=== PATIENT | male | born 1980 | race Two or more races ===

== ENCOUNTER 2024-10-20 09:42 | Outpatient (REF) | payer MEDICAID, SELFPAY ==
--- OUTSIDE RECORDS SUMMARY | 2024-10-19 11:15 | XMS_ITS | Encounter Summary ---
Author Organization [employer] Address [address] [facility] [address] [place] [address] Care Team Providers Care Production Machine Operator Name Role Phone Hiral Salamanca MD Primary Care Provider [phone] Radha Anthony RN Unavailable [phone] Michael Lemus Unavailable Reason for Referral * Consultation (Urgent) - Pending Review Specialty Diagnoses / Procedures Referred By Lewis card Referred To Contact Orthopaedic Surgery Diagnoses Acute right hip pain Hiral Salamanca MD [address] [place] [address] Phone: tel: fax: Referral ID Status Reason Start Date Expiration Date Visits Requested Visits Authorized [id number] Pending Review Specialty Services Required 10/19/2024 10/19/2025 1 1 Reason for Visit * Reason Comments Knee Pain lelia Encounter Details Date Type Department Care Team (Late st Contact Info) Description 10/19/2024 11:15 AM EDT Office Visit [facility] [address] [place] [address] Hiral Salamanca MD [address] [place] [address] Acute right hip pain (Primary Dx); Elevated BP without diagnosis of hypertension Social History Tobacco Use Types Packs/Day Years Used Date Smoking Tobacco: Every Day Cigarettes Housing Stability Answer Date Recorded What is your housing situation today? I have shantell dukes 10/19/[address] you li ve. Do you have problems with any of the following? None of the above 10/19/2024 Food Insecurity Answer Date Recorded Within the past 12 months, y ou worried that your food would run out before you got money to buy more: Never True 10/19/2024 Within the past 12 months,th e food you bought just didn't last and you didn't have enough money to get more: Never True Transportation Answer Date Recorded In the past 12 months, has l ack of transportation kept you from medical appts, meetings, work or from getting things needed for daily living? No 10/15/2024 Utilities Answer Date Recorded In the past 12 months, has t he electric, gas, oil or water company threatened to shut off services in your home? No 10/15/2024 Internet Access Answer Date Recorded Internet Access Q1 No 10/19/2024 Internet Access Q2 I do not want or need it 09/22 Sex and Gender Information Value Date Recorded Sex Assigned at Male 02/19/2022 10:23 AM EDT Legal Sex Male 10:23 AM EDT Gender Identity Male 02/19/2022 10:23 AM EDT Sexual Orientation Straight 02/19/2022 10 :23 AM EDT documented as of this encounter Last Filed Vital Signs Vital Sign Reading Time Taken Comments Blood Pressure 138/94 10/19/2024 11:14 AM EDT Pulse 94 10/19/2024 11:14 AM EDT Temperature 36.2 C (97.1 F) 10/19/2024 11:14 AM EDT Respiratory Rate 18 10/19/2024 11:14 AM EDT Oxygen Saturation - - Inhaled Oxygen Concentration - - Weight 77.1 kg (170 lb) 10/19/2024 11:14 AM EDT Height 176.5 cm (5' 9.5 ) 10/19/2024 11:14 AM ED T Body Mass Index 24.74 10/19/2024 11:14 AM EDT documented in this encounter Progress Notes * Hiral Salamanca MD - 10/19/2024 11:15 AM EDT Subjective Patient ID: Mo Amado is a 44 y.o. male who presents for hip pain Hip Pain There was no injury mechanism. The pain is present in the right hip. The quality of the pain is described as aching. The pain is at a severity of 7/10. The pain is moderate. The pain has been Constant since onset. Associated symptoms include an inability to bear weight. The symptoms are aggravated by movement and weight bearing. He has tried NSAIDs for the symptoms. The treatment provided mild rel ief. Review of Systems Constitutional: Negative. Respiratory: Negative. Cardiovascular: Negative. Gastrointestinal: Negative. Genitourinary: Negative. Objective Physical Exam Constitutional: Appearance: Normal appearance. Cardiovascular: Rate and Rhythm: Normal rate and regular rhythm. Pulmonary: Effort: Pulmonary effort is normal. Breath sounds: Normal breath sounds. Neurological: General: No focal deficit present. Mental Status: He is alert. Psychiatric: Mood and Affect: Mood normal. Behavior: Behavior normal. Assessment/Plan Diagnoses and all orders for this visit: Acute right hip pain Comments: Xray ordered today Advised Ibuprofen ,flexeril and Ice Orders: - Referral to Orthopaedic Surgery; Future - XR Hip 2 or 3 Views Right; Future Elevated BP without diagnosis of hypertension Maintain a low-sodium diet (less than 2 grams per day). Maintain a regular cardiovascular exercise program. Advised to maintain a low-fat, low-cholesterol diet. Counseled regarding importance of weight loss. Counseled re: potential co-morbidities including cardiovascular disease. - Basic Metabolic Panel; Future - Lipid Panel, Standard; Future - Hepatic Function Panel; Future Other orders - ibuprofen 800 MG tablet; Take 1 tablet (800 mg) by mouth 3 times daily. - cyclobenzaprine (Flexeril) 10 MG tablet; One tab po at bedtime prn pain of muscles, do not drive with medicaion documented in this encounter Plan of Treatment Scheduled Orders Name Type Priority Associated Diagnoses Orde r Schedule XR Hip 2 or 3 Views Right Imaging Routine Acute right hip pain Expected: 10/19/2024, Expires: 10/19/2025 Basic Metabolic Panel Lab Routine Elevated BP without diagnosis of hypertension Expected: 10/19/2024 (Approximate), Expires: 10/19/2025 Lipid Panel, Standard Lab Routine Elevated BP without diagnosis of hypertension Expected: 10/19/2024 (Approximate), Expires: 10/19/2025 Hepatic Function Panel Lab Routine Elevated BP without diagnosis of hypertension Expected: 10/19/2024 (Approximate), Expires: 10/19/2025 Scheduled Referrals Name Type Priority Associated Diagnoses Order Schedule Referral to Orthopaedic Surgery Outpatient Referral Urgent Acute right hip pain Expected: 10/19/2024 (Approximate), Expires: 10/19/2025 documented as of this encounter Visit Diagnoses Diagnosis Acute right hip pain- Primary Elevated BP without diagnosis of hypertension documented in this encounter Care Teams Production Machine Operator Relationship Specialty Start Date End Date Hiral Salamanca MD [address] [place] [id number] PCP - General Family Medicine 02/12/20 Radha Anthony RN [address] [place] [id number] Registered Nurse Family Medicine 10/15/24 Michael Lemus 10/15/24 documented as of this encounter
--- OUTSIDE RECORDS SUMMARY | 2024-10-20 10:39 | XMS_ITS | Clinical Summary ---
Author Organization [facility] Address [address] [place] [address] Phone Care Team Providers Care Machinery Rigger Name Role Phone Physician, Pcp Unknown Primary Care Provider Patricia vailable Allergies No known active allergies Encounters Date Type Department Care Team Description 10/15/2024 3:52 AM EDT - 10/15/2024 4:57 AM EDT Emergency [facility] Emergency [address] [place] [address] Discharge Disposition: Left Against Medical Advice from Last 3 Months Social History Tobacco Use Types Packs/Day Years Used Date Smoking Tobacco: Never Assessed Sex and Gender Information Value Date Recorded Sex Assigned at Not on file Legal Sex Male 2:21 AM EST Gender Identity Not on file Sexual Orientation Not on file Last Filed Vital Signs Vital Sign Reading Time Taken Comments Blood Pressure 134/100 10/15/2024 4:22 AM EDT Pulse 72 10/15/2024 4:22 AM EDT Temperature 36.4 C (97.5 F) 10/15/2024 4:22 AM EDT Respiratory Rate 18 10/15/2024 4:22 AM EDT Oxygen Saturation 100% 10/15/2024 4:22 AM EDT Inhaled Oxygen Concentration - - Weight 74.8 kg (165 lb) 10/15/2024 4:22 AM EDT Height 175.3 cm (5' 9 ) 10/15/2024 4:22 AM EDT Body Mass Index 24.37 10/15/2024 4:22 AM EDT Plan of Treatment Health Maintenance Due Date Last Done Comments Hepatitis B Vaccines (1 of 3 - 19+ 3-dose series) 1997 Colorectal Cancer Screening: Colonoscopy 03/25/2022 Depression Screening 03/25/2022 HIV Screening 03/25/2022 Hepatitis C Screening 03/25/2022 Social Influencers of Health Screening 03/25/2022 COVID-19 Vaccine (4 - 2023-2 5 season) 2023 03/28/2021, 09/05/2020, 08/03/2020 Influenza Vaccine (#1) 2024 02/11/2020 Cholesterol Screening (Lipid Panel) 10/11/2027 10/10/2022 DTaP,Tdap,and Td Vaccines (2 - Td or Tdap) 03/25/2030 03/25/2020 HIB Vaccines Aged Out No longer eligi ble based on patient's age to complete this topic HPV Vaccines Aged Out No longer eligi ble based on patient's age to complete this topic Hepatitis A Vaccines Aged Out No long er eligible based on patient's age to complete this topic IPV Vaccines Aged Out No longer eligi ble based on patient's age to complete this topic MMR Vaccines Aged Out No longer eligi ble based on patient's age to complete this topic Meningococcal ACWY Vaccine Aged Out N o longer eligible based on patient's age to complete this topic Meningococcal B Vaccine Aged Out No l onger eligible based on patient's age to complete this topic Pneumococcal Vaccine: Pediatrics (0 to 5 Years) and At-Risk Patients (6 to 64 Years) Aged Out No longer eligible b ased on patient's age to complete this topic RSV Immunization Patients Under 20 months Aged Out No longer eligible b ased on patient's age to complete this topic Varicella Vaccines Aged Out No longer eligible based on patient's age to complete this topic Procedures Procedure Name Priority Date/Time Associated Diagnosis Comments CBC WITH AUTO DIFFERENTIAL STAT 10/15/2024 4:00 AM EDT LIPASE STAT 10/15/2024 4:00 AM EDT COMPREHENSIVE METABOLIC PANEL STAT 10/15/2024 4:00 AM EDT CBC AND DIFFERENTIAL STAT 10/15/2024 4:00 AM EDT from Last 3 Months Results * (ABNORMAL) CBC auto differential (10/15/2024 4:00 AM EDT) WBC 5.8 4.8 - 10.8 K/[facility] LAB HEMETOLOGY METHOD 10/15/2024 4:28 AM [facility] RBC 4.10(L) 4.50 - 5.50 M/mcL LAB HEMETOLOGY METHOD 10/15/2024 4:28 AM [facility] Hemoglobin 13.1(L) 13.5 - 17.5 g/dL LAB HEMETOLOGY METHOD 10/15/2024 4:28 AM [facility] Hematocrit 38.3(L) 42.0 - 54.0 % LAB HEMETOLOGY METHOD 10/15/2024 4:28 AM [facility] MCV 93.0 79.0 - 98.0 FL LAB HEMETOLOGY METHOD 10/15/2024 4:28 AM [facility] MCH 31.8 27.0 - 32.0 pcg LAB HEMETOLOGY METHOD 10/15/2024 4:28 AM [facility] MCHC 34.2 32.0 - 37.0 g/dL LAB HEMETOLOGY METHOD 10/15/2024 4:28 AM [facility] RDW 11.9 11.0 - 15.0 % LAB HEMETOLOGY METHOD 10/15/2024 4:28 AM [facility] Platelets 200 130 - 400 K/mcL LAB HEMETOLOGY METHOD 10/15/2024 4:28 AM [facility] MPV 9.5 7.0 - 11.0 FL LAB HEMETOLOGY METHOD 10/15/2024 4:28 AM [facility] NRBC 0.0 <1.0 % LAB HEMETOLOGY METHOD 10/15/2024 4:28 AM [facility] NRBC Absolute 0.00 <0.10 K/mcL LAB HEMETOLOGY METHOD 10/15/2024 4:28 AM [facility] Neutrophils Relative 35.7 % LAB HEMETOLOGY METHOD 10/15/2024 4:28 AM [facility] Lymphocytes Relative 51.5 % LAB HEMETOLOGY METHOD 10/15/2024 4:28 AM [facility] Monocytes Relative 9.2 % LAB HEMETOLOGY METHOD 10/15/2024 4:28 AM [facility] Eosinophils Relative 2.4 % LAB HEMETOLOGY METHOD 10/15/2024 4:28 AM [facility] Basophils Relative 1.0 % LAB HEMETOLOGY METHOD 10/15/2024 4:28 AM [facility] Immature Granulocytes Relative 0.2 % LAB HEMETOLOGY METHOD 10/15/2024 4:28 AM [facility] Neutrophils Absolute 2.07 1.50 - 7.00 K/mcL LAB HEMETOLOGY METHOD 10/15/2024 4:28 AM [facility] Lymphocytes Absolute 2.98 1.00 - 5.00 K/mcL LAB HEMETOLOGY METHOD 10/15/2024 4:28 AM [facility] Monocytes Absolute 0.53 0.20 - 1.00 K/mcL LAB HEMETOLOGY METHOD 10/15/2024 4:28 AM [facility] Eosinophils Absolute 0.14 0.00 - 0.50 K/mcL LAB HEMETOLOGY METHOD 10/15/2024 4:28 AM [facility] Basophils Absolute 0.06 0.00 - 0.20 K/mcL LAB HEMETOLOGY METHOD 10/15/2024 4:28 AM [facility] Immature Granulocytes Absolute 0.01 0.00 - 0.03 K/mcL LAB HEMETOLOGY METHOD 10/15/2024 4:28 AM [facility] Blood Venous blood specimen / Unknown Venipuncture / Unknown 10/15/2024 4:00 AM EDT 10/15/2024 4:21 AM EDT Erica Wan MD LAB BLOOD ORDERABLES Fin al Result Performing Organization Address City/[facility]/ZIP Co de Phone Number [facility] [address] [place] [address], [place] [phone] * Lipase (10/15/2024 4:00 AM EDT) Pathologist [facility] Lipase 22 13 - 75 unit/L LAB CHEMISTRY METHOD 10/15/2024 4:51 AM EDT [facility] Blood Venous blood specimen / Unknown Venipuncture / Unknown 10/15/2024 4:00 AM EDT 10/15/2024 4:21 AM EDT Erica Wan MD LAB BLOOD ORDERABLES Fin al Result Performing Organization Address [facility] Co de Phone Number [facility] [address] [place] [address], [place] [phone] * (ABNORMAL) Comprehensive metabolic panel (10/15/2024 4:00 AM EDT) [facility] Sodium 138 133 - 145 mmol/L LAB CHEMISTRY METHOD 10/15/2024 4:52 AM [facility] Potassium 3.3(L) 3.5 - 5.5 mmol/L LAB CHEMISTRY METHOD 10/15/2024 4:52 AM EDT [facility] Chloride 104 96 - 110 mmol/L LAB CHEMISTRY METHOD 10/15/2024 4:[facility] CO2 32 21 - 32 mmol/L LAB CHEMISTRY METHOD 10/15/2024 4:52 AM [facility] Anion Gap 2(L) 3 - 11 LAB CHEMISTRY METHOD 10/15/2024 4:52 [facility] Glucose 119(H) 70 - 100 mg/dL LAB CHEMISTRY METHOD 10/15/2024 4:52 AM [facility] BUN 19 5 - 25 mg/dL LAB CHEMISTRY METHOD 10/15/2024 4:52 AM [facility] Creatinine 1.12 0.70 - 1.30 mg/dL LAB CHEMISTRY METHOD 10/15/2024 4:52 AM [facility] eGFR 82 >=60 mL/min/1. 73m2 LAB CHEMISTRY METHOD 10/15/2024 4:52 AM [facility] Comment:Calculation based on the Chronic Kidney Disease Epidemiology Collaboration (CKD-EPI) equation refit without adjustment for race. BUN/Creatinine Ratio 17.0 LAB CHEMISTRY METHOD 10/15/2024 4:52 AM [facility] Calcium 9.1 8.5 - 10.5 mg/dL LAB CHEMISTRY METHOD 10/15/2024 4:52 AM [facility] AST (SGOT) 25 10 - 42 unit/L LAB CHEMISTRY METHOD 10/15/2024 4:52 AM [facility] ALT (SGPT) 21 10 - 60 unit/L LAB CHEMISTRY METHOD 10/15/2024 4:52 AM [facility] Alkaline Phosphatase 95 42 - 121 unit/L LAB CHEMISTRY METHOD 10/15/2024 4:52 AM [facility] Total Protein 7.6 6.0 - 8.0 g/dL LAB CHEMISTRY METHOD 10/15/2024 4:52 AM [facility] Albumin 4.2 3.2 - 5.0 g/dL LAB CHEMISTRY METHOD 10/15/2024 4:52 AM [facility] Total Bilirubin 0.3 0.0 - 1.4 mg/dL LAB CHEMISTRY METHOD 10/15/2024 4:52 AM [facility] Blood Venous blood specimen / Unknown Venipuncture / Unknown 10/15/2024 4:00 AM EDT 10/15/2024 4:21 AM EDT us Erica Wan MD LAB BLOOD ORDERABLES Fin al Result [facility] ([facility] [address] [place] [address], [place] [phone] from Last 3 Months Insurance MEDICAID - [place] Care Teams Machinery Rigger Relationship Specialty Start Date End Date Physician, Pcp Unknown PCP - General 10/15/24
[2024-10-20 14:49] LABS: Alanine Aminotransferase 17 U/L (0-40); Albumin Level 4.2 g/dL (3.5-5.0); Alkaline Phosphatase 79 U/L (39-117); Anion Gap 10 (12-20); Aspartate Amino Transferase 40 U/L (5-37); Blood Urea Nitrogen 16 mg/dL (9-16); Calcium 8.5 mg/dL (8.4-10.2); Carbon Dioxide 29 mmol/L (22-29); Chloride 107 mmol/L (96-108); Cholesterol 113 mg/dL (<200); Estimated Glomerular Filt Rate > 60; HDL Cholesterol 29 mg/dL (>40); Potassium 3.7 mmol/L (3.3-5.1); Sodium 142 mmol/L (135-145); Total Protein 6.8 g/dL (6.5-8.0); Triglycerides 55 mg/dL (<150)
== END 2024-10-20 09:43 | disposition home or self-care (01) ==
LOC: HO.CHCLDS 09:42
PROVIDERS: Visit Provider Student in an Organized Health Care Education/Training Program
DX: R03.0 Elevated blood-pressure reading, without diagnosis of hypertension (principal)
CPT/HCPCS: 36415; 80048; 80061; 80076

== ENCOUNTER 2024-11-19 09:29 | Outpatient (REF) | payer MEDICAID, SELFPAY ==
--- NOTE | ~2024-11-19 | XR_ITS ---
EXAMINATION: XR HIP, RIGHT CLINICAL INFORMATION: pain COMPARISON: None available. TECHNIQUE: AP and frog-leg lateral views of the right hip. FINDINGS: Joint spaces preserved. There are no degenerative changes. There are no soft tissue calcifications. XR/XR hip RT min 2V IMPRESSION: Unremarkable right hip Electronically signed by: Jordan Rosas MD 11/19/2024 10:29 AM EDT RP
--- OUTSIDE RECORDS SUMMARY | 2024-11-19 09:53 | XMS_ITS | Clinical Summary ---
Author Organization [facility] Address [address] [place] [address] Phone Care Team Providers Care Underwear Cutter Name Role Phone Physician, Pcp Unknown Primary Care Provider Patricia vailable Allergies No known active allergies Encounters Date Type Department Care Team Description 10/15/2024 3:52 AM EDT - 10/15/2024 4:57 AM EDT Emergency [facility] Emergency [address] [place] [address] Discharge Disposition: Left Against Medical [...] series) 1997 Colorectal Cancer Screening: Colonoscopy 03/25/2022 HIV Screening 03/25/2022 Hepatitis C Screening 03/25/2022 Social Influencers of Health Screening 03/25/2022 COVID-19 Vaccine (2023-2 5 season) 2023 03/28/2021, 09/05/2020, 08/03/2020 Depression Screening 04/22/2024 Influenza Vaccine (#1) 2024 02/11/2020 Cholesterol Screening [...] 5 Years) and At-Risk Patients (6 to 49 Years) Aged Out No longer eligible b [...] Center LAB HEMETOLOGY METHOD 10/15/2024 4:28 AM [facility] RBC 4.10(L) 4.50 - 5.50 M/mcL LAB HEMETOLOGY METHOD 10/15/2024 4:28 AM [facility] Hemoglobin 13.1(L) 13.5 - 17.5 g/dL LAB HEMETOLOGY METHOD 10/15/2024 4:28 AM [facility] Hematocrit 38.3(L) 42.0 - 54.0 % LAB HEMETOLOGY METHOD 10/15/2024 4:28 AM [facility] MCV 93.0 79.0 - 98.0 FL LAB HEMETOLOGY METHOD 10/15/2024 4:28 AM [facility] MCH 31.8 27.0 - 32.0 pcg LAB HEMETOLOGY METHOD 10/15/2024 4:28 AM [facility] MCHC 34.2 32.0 - 37.0 g/dL LAB HEMETOLOGY METHOD 10/15/2024 4:28 AM [facility] RDW 11.9 11.0 - 15.0 % LAB HEMETOLOGY METHOD 10/15/2024 4:28 AM [facility] Platelets 200 130 - 400 K/mcL LAB HEMETOLOGY METHOD 10/15/2024 4:28 AM [facility] MPV 9.5 7.0 - 11.0 FL LAB HEMETOLOGY METHOD 10/15/2024 4:28 AM [facility] NRBC 0.0 <1.0 % LAB HEMETOLOGY METHOD 10/15/2024 4:28 AM [facility] NRBC Absolute 0.00 <0.10 K/mcL LAB HEMETOLOGY METHOD 10/15/2024 4:28 AM [facility] Neutrophils Relative 35.7 % LAB HEMETOLOGY METHOD 10/15/2024 4:28 AM [facility] Lymphocytes Relative 51.5 % LAB HEMETOLOGY METHOD 10/15/2024 4:28 AM [facility] Monocytes Relative 9.2 % LAB HEMETOLOGY METHOD 10/15/2024 4:28 AM [facility] Eosinophils Relative 2.4 % LAB HEMETOLOGY METHOD 10/15/2024 4:28 AM [facility] Basophils Relative 1.0 % LAB HEMETOLOGY METHOD 10/15/2024 4:28 AM [facility] Immature Granulocytes Relative 0.2 % LAB HEMETOLOGY METHOD 10/15/2024 4:28 AM [facility] Neutrophils Absolute 2.07 1.50 - 7.00 K/mcL LAB HEMETOLOGY METHOD 10/15/2024 4:28 AM [facility] Lymphocytes Absolute 2.98 1.00 - 5.00 K/mcL LAB HEMETOLOGY METHOD 10/15/2024 4:28 AM [facility] Monocytes Absolute 0.53 0.20 - 1.00 K/mcL LAB HEMETOLOGY METHOD 10/15/2024 4:28 AM [facility] Eosinophils Absolute 0.14 0.00 - 0.50 K/mcL LAB HEMETOLOGY METHOD 10/15/2024 4:28 AM [facility] Basophils Absolute 0.06 0.00 - 0.20 K/mcL LAB HEMETOLOGY METHOD 10/15/2024 4:28 AM [facility] Immature Granulocytes Absolute 0.01 0.00 - 0.03 K/mcL LAB HEMETOLOGY METHOD 10/15/2024 4:28 AM [facility] Blood Venous blood specimen / Unknown Venipuncture / Unknown 10/15/2024 4:00 AM EDT 10/15/2024 4:21 AM EDT Erica Wan MD LAB BLOOD ORDERABLES Fin al Result Performing Organization Address City/[facility]/ZIP Co de Phone Number [facility] [address] [place] [address], [place] [phone] * Lipase (10/15/2024 4:00 AM EDT) Pathologist [facility] Lipase 22 13 - 75 unit/L LAB CHEMISTRY METHOD 10/15/2024 4:51 AM EDT [facility] Blood Venous blood specimen / Unknown Venipuncture / Unknown 10/15/2024 4:00 AM EDT 10/15/2024 4:21 AM EDT Erica Wan MD LAB BLOOD ORDERABLES Fin al Result Performing Organization Address [facility] Co de Phone Number [facility] [address] [place] [address], [place] [phone] * (ABNORMAL) Comprehensive metabolic panel (10/15/2024 4:00 AM EDT) [facility] Sodium 138 133 - 145 mmol/L LAB CHEMISTRY METHOD 10/15/2024 4:52 AM [facility] Potassium 3.3(L) 3.5 - 5.5 mmol/L LAB CHEMISTRY METHOD 10/15/2024 4:52 AM EDT [facility] Chloride 104 96 - 110 mmol/L LAB CHEMISTRY METHOD 10/[facility]/2024 4:[facility] 32 21 - 32 mmol/L LAB CHEMISTRY METHOD 10/15/2024 4:52 AM [facility] Anion Gap 2(L) 3 - 11 LAB CHE[facility]STRY METHOD [facility]2024 4:[facility] Glucose 119(H) 70 - 100 mg/dL LAB CHEMISTRY METHOD 10/15/2024 4:52 AM [facility] BUN 19 5 - 25 mg/dL LAB CHEMISTRY METHOD 10/15/2024 4:52 AM [facility] Creatinine 1.12 0.70 - 1.30 mg/dL LAB CHEMISTRY METHOD 10/15/2024 4:52 AM [facility] eGFR 82 >=60 mL/min/1. 73m2 LAB CHEMISTRY METHOD 10/15/2024 4:52 AM [facility] Comment:Calculation based on the Chronic Kidney Disease Epidemiology Collaboration (CKD-EPI) equation refit without adjustment for race. BUN/Creatinine Ratio 17.0 LAB CHEMISTRY METHOD 10/15/2024 4:52 AM [facility] Calcium 9.1 8.5 - 10.5 mg/dL LAB CHEMISTRY METHOD 10/15/2024 4:52 AM [facility] AST (SGOT) 25 10 - 42 unit/L LAB CHEMISTRY METHOD 10/15/2024 4:52 AM [facility] ALT (SGPT) 21 10 - 60 unit/L LAB CHEMISTRY METHOD 10/15/2024 4:52 AM [facility] Alkaline Phosphatase 95 42 - 121 unit/L LAB CHEMISTRY METHOD 10/15/2024 4:52 AM [facility] Total Protein 7.6 6.0 - 8.0 g/dL LAB CHEMISTRY METHOD 10/15/2024 4:52 AM [facility] Albumin 4.2 3.2 - 5.0 g/dL LAB CHEMISTRY METHOD 10/15/2024 4:52 AM [facility] Total Bilirubin 0.3 0.0 - 1.4 mg/dL LAB CHEMISTRY METHOD 10/15/2024 4:52 AM [facility] Blood Venous blood specimen / Unknown Venipuncture / Unknown 10/15/2024 4:00 AM EDT 10/15/2024 4:21 AM EDT us Erica Wan MD LAB BLOOD ORDERABLES Fin al Result [facility] ([facility]) [facility] [address] [place] [address], [place] [phone] from Last 3 Months Insurance MEDICAID - [place] Care Teams Underwear Cutter Relationship Specialty Start Date End Date Physician, Pcp Unknown PCP - General 10/15/24
--- OUTSIDE RECORDS SUMMARY | 2024-11-19 09:53 | XMS_ITS | Encounter Summary ---
Author Organization [employer] Address [address] [place] [address] Care Team Providers Care Coppersmith Apprentice Name Role Phone Hiral Salamanca MD Primary Care Provider Radha Anthony RN Unavailable [phone] Michael Lemus Unavailable Reason for Visit * Reason Comments Care Management C3CM- follow up call (coverage for Radha) Encounter Details Date Type Department Care Team ([facility] st Contact Info) Description 11/17/2024 Patient Outreach [facility] MEDICINE [address] [place] [address] Hiral Salamanca MD [address] [place] [address] Care Management (C3CM- follow up call (coverage for Radha)) Social History Tobacco Use Types Packs/Day Years [...] AM EDT documented as of this encounter Progress Notes * Nilesh Morales RN - 11/17/2024 11:10 AM EDT KOLE Morales RN placed outbound call to patient. Patient's name, and address confirmed. Patient states is doing well with no recent illnesses or emergency room visits. Pt state he was scheduled for otho appt on December 19 but has not yet completed his xray. 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 Pt states he will he will get xray done this weekend. Patient reports taking ibuprofen and muscle relaxer which helps with his pain. Patient state sitting down or bending leg aggravates pain and also having some difficulties at work. No further questions or concerns. CM reinforced direct contact information for any additional questions or concerns. Education provided on [facility] located in [facility] of [facility]. Patient provided with after-hours line for [facility], , which offer night time triage service and option to transfer to millstone cleaner provider if needed. Patient verbalizes understanding, and able to r epeat back to screenplay writer. A follow up call will be placed within 10 days, patient agrees with plan. documented in this encounter Plan of Treatment Not on file documented as of this encounter Visit Diagnoses Not on filedocumented in this encounter Care Teams Coppersmith Apprentice Relationship Specialty Start Date End Date Jadyn, Hiral, MD [address] [place] [address] PCP - General Family Medicine 02/12/20 Radha Anthony RN [address] [place] [address] Registered Nurse Family Medicine 10/15/24 Michael Lemus 10/15/24 documented as of this encounter
== END 2024-11-19 09:30 | disposition home or self-care (01) ==
LOC: HO.XRAY 09:29
PROVIDERS: PCP Student in an Organized Health Care Education/Training Program; Visit Provider Student in an Organized Health Care Education/Training Program
DX: M25.551 Pain in right hip (principal)
CPT/HCPCS: 73502

== ENCOUNTER → 2024-11-19 09:35 | Outpatient (BNV) | payer MEDICAID, SELFPAY | PROVIDERS: PCP Student in an Organized Health Care Education/Training Program; Visit Provider Radiology Diagnostic Radiology | DX: M25.551 Pain in right hip (principal) | CPT/HCPCS: 73502 ==

== ENCOUNTER 2025-03-08 08:49 | Outpatient (REF) | payer MEDICAID, SELFPAY | END 2025-03-08 08:50 | disposition home or self-care (01) | LOC: HO.CHCLNP 08:49 | PROVIDERS: Visit Provider Registered Nurse | DX: R10.9 Unspecified abdominal pain (principal) | CPT/HCPCS: 87338 ==